=== PATIENT | male | born 1950 | race Caucasian/White ===

== ENCOUNTER 2021-01-16 17:17 | Emergency (ER) | payer OTHER ==
--- NOTE | 2021-01-16 17:51 | RAD REPORT ---
EXAM DESCRIPTION: RAD - Forearm Left - 01/16/2021 5:38 pm CLINICAL HISTORY: laceration;Pain COMPARISON: No comparisons FINDINGS: No acute fracture. No malalignment. No significant focal degenerative changes. IMPRESSION: No acute osseous abnormality involving the left forearm. No radiopaque foreign bodies.
--- NOTE | 2021-01-16 18:16 | RAD REPORT ---
EXAM DESCRIPTION: CT - Head C Spine Cap Wo Con - 01/16/2021 6:01 pm CLINICAL HISTORY: Trauma, head and neck injury. Chest, abdomen and pelvis pain. fall from ladder COMPARISON: No comparisons TECHNIQUE: CT head without contrast. CT cervical spine without contrast with coronal and sagittal reformatted images. CT chest, abdomen and pelvis without contrast with coronal and sagittal reformatted images of the spi ne. All CT scans are performed using dose optimization technique as appropriate and may include automated exposure control or mA/KV adjustment according to patient size. FINDINGS: CT HEAD WITHOUT CONTRAST: No intracranial hemorrhage, hydrocephalus or extra-axial fluid collection. No areas of brain edema o r midline shift. Status post left occipital craniotomy. 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 The paranasal sinuses and mastoids are clear. The calvarium is intact. CT CERVICAL SPINE WITHOUT CONTRAST: No fracture or subluxation. The prevertebral soft tissues are normal in thickness.Multilevel cervica l spondylosis with varying degrees of neural foraminal narrowing. CT CHEST, ABDOMEN, PELVIS WITHOUT CONTRAST: NOTE: Lack of contrast is a significant limitation in the assessment of trauma related findings. Spec ifically, solid organ, vascular and bowel evaluation is significantly limited. The lungs are clear.No pneumothorax or pericardial/pleural fluid. Mild coronary artery calcifications . No evidence of intra-abdominal visceral injury, free fluid or free air is seen within the above detai led limitations. Cholelithiasis. No concerning pelvic findings. T12 compression fracture with less than 20% loss of height. No bony retropulsion. IMPRESSION: T12 compression fracture with less than 20% loss of height anteriorly. No other signific ant trauma is identified. Incidental findings as noted above.
[2021-01-16 18:19] LABS: Absolute Lymphocytes (CBC) 1.3 K/uL (0.7-4.9); Basophils % 0.7 % (0-1.3); Hematocrit 37.1 % (39.6-49.0); Lymphocytes % 25.9 % (15.3-44.8); MPV 8.7 fL (7.6-11.3); RBC Red Blood Cell Count 3.98 M/uL (4.33-5.43)
[2021-01-16 18:37] LABS: ALT/SGPT 48 U/L (12-78); AST/SGOT 38 U/L (15-37); Albumin 3.4 g/dL (3.4-5.0); Alkaline Phosphatase 86 U/L (45-117); BUN Blood Urea Nitrogen 39 mg/dL (7-18); Bicarbonate 22 mmol/L (21-32); Bilirubin Direct < 0.1 mg/dL (0-0.2); Bilirubin Total 0.2 mg/dL (0.2-1.0); Glucose Level 118 mg/dL (74-106); Magnesium 2.2 mg/dL (1.8-2.4); Potassium 3.9 mmol/L (3.5-5.1); Protein, Total 7.1 g/dL (6.4-8.2); Sodium Level 145 mmol/L (136-145); Troponin (Emerg Dept Use Only) < 0.02 ng/mL (0.0-0.045)
[2021-01-16] MEDS ORDERED: BUPIVACAINE 0.5% PF 10 ML VIAL ONE (19:10)
[2021-01-16] MEDS ORDERED: LIDOCAINE 1% W/EPI 1:100,000 MDV 20 ML VIAL ONE (19:10)
--- NOTE | 2021-01-16 20:18 | ER ---
Nurse's Notes [facility] Name: Chuck Lopez Age: 70 yrs Sex: Male : 1950 Arrival Date: 01/16/2021 Time: 17:19 Bed 7 Private MD: Diagnosis: Fall on and from ladder, initial encounter;Laceration without foreign body of left forearm, initial encounter;Fracture of thoracic vertebra-compression, T12 Presentation: 01/16 17:32 Chief complaint: Patient states: Fell off ladder from 10 foot up, laceration to left FA jl7 from external grinder tender, hit back of head, denies loss of consciousness. 17:32 Acuity: ELLIOT 2 jl7 17:32 Care prior to arrival: None. Mechanism of Injury: Fall down 10 steps approximately 10 jl7 feet. Trauma event details: Injury occurred in the [facility], Injury occurred: at home. Injury occurred: January 16, 2021 Injury occurred at: 16:45. 17:32 Method Of Arrival: Wheelchair jl7 17:36 Coronavirus screen: At this time, the client does not indicate any symptoms associated jl7 with coronavirus-19. Ebola Screen: No symptoms or risks identified at this time. Risk Assessment: Do you want to hurt yourself or someone else? Patient reports no desire to harm self or others. Onset of symptoms was January 16, 2021. 17:36 Initial Sepsis Screen: Does the patient meet any 2 criteria? No. Patient's initial bp sepsis screen is negative. Does the patient have a suspected source of infection? No. Patient's initial sepsis screen is negative. 17:36 Complicating Factors: POSSIBLE ELECTROCUTION. bp 20:04 Note Nonadherent dressing applied to left forearm with bacitracin. Dressing applied to df1 abrasion to left ankle. Triage Assessment: 17:36 General: SEE TRIAGE NOTE. Injury Description: Laceration sustained to dorsal aspect of bp left forearm is 2.6 to 7.5 cm long, bleeding moderately. Historical: - Allergies: 17:37 Dilantin; jl7 - Home Meds: 17:37 Aspirin Oral [Active]; topiramate 200 mg oral cp24 [Active]; Epitol 200 mg oral tab jl7 [Active]; Effexor Oral [Active]; - PMHx: 17:37 brain tumor; Hypercholesterolemia; jl7 - PSHx: 17:37 brain tumor removal; jl7 - Immunization history: Last tetanus immunization: < 5 years ago. - Social history:: Smoking status: Patient denies any tobacco usage or history of. Screenin:32 Abuse screen: Denies threats or abuse. Denies injuries from another. Tuberculosis jl7 screening: No symptoms or risk factors identified. Primary Survey: 17:32 Uncontrolled hemorrhage is observed, assessment has been re-ordered to <C> ABC. A: jl7 Airway: patent. Breathing/Chest: Respiratory pattern: regular, Respiratory effort: spontaneous, unlabored, Chest inspection: symmetrical rise and fall of the chest. Circulation: Pulses: palpable right radial artery and left radial artery. Skin color: pink, Skin temperature: warm. Disability Alert. Exposure/Environment: All clothing and personal items were removed. Forensic evidence collection is not deemed to be indicated at this time. Items placed in patient belonging bag. There is evidence of uncontrolled external hemorrhage. Provider notified immediately. Methods to control bleeding applied. Obvious injury(ies) are noted at this time: laceration to left forearm A warming method has been applied: A warm blanket has been provided to the patient. Secondary Survey: 17:35 HEENT: No deficits noted. Gastrointestinal: No deficits noted. : No signs and/or bp symptoms were reported regarding the genitourinary system. Musculoskeletal: No deficits noted. Assessment: 17:35 General: Appears in no apparent distress. comfortable, Behavior is calm, cooperative, bp appropriate for age. 17:35 Pain: Complains of pain in dorsal aspect of left forearm. Neuro: Level of Consciousness bp is awake, alert, obeys commands, Oriented to Appropriate for age. EENT: No deficits noted. Cardiovascular: No deficits noted. Respiratory: No deficits noted. GI: No signs and/or symptoms were reported involving the gastrointestinal system. : No signs and/or symptoms were reported regarding the genitourinary system. Derm: No deficits noted. Musculoskeletal: No deficits noted. Injury Description: Laceration sustained to dorsal aspect of left forearm. 18:38 Reassessment: No changes from previously documented assessment. Patient and/or family bp updated on plan of care and expected duration. Pain level reassessed. PT RETURNED FROM CT. PER MD, PT HAS LUMBAR SPINE FX 2/2 FALL. Vital Signs: 17:36 BP 131 / 90; Pulse 70; Resp 16; Temp 97.9; Pulse Ox 100% ; bp 18:35 BP 130 / 84; Pulse 68; Resp 16; Pulse Ox 100% ; bp 20:06 BP 131 / 84; Pulse 69; Resp 18; Pulse Ox 100% on R/A; df1 Gerlach Coma Score: 17:32 Eye Response: spontaneous(4). Verbal Response: oriented(5). Motor Response: obeys jl7 commands(6). Total: 15. Trauma Score (Adult): 17:35 Eye Response: spontaneous(1); Verbal Response: oriented(1); Motor Response: obeys bp commands(2); Systolic BP: > 89 mm Hg(4); Respiratory Rate: 10 to 29 per min(4); Gerlach Score: 15; Trauma Score: 12 ED Course: 17:19 Patient arrived in ED. jl7 17:23 Franck Mo PA is PHCP. cp 17:23 Pedro Luis Woodruff MD is Attending Physician. cp 17:32 Patient has correct armband on for positive identification. jl7 17:32 Patient maintains SpO2 saturation greater than 95% on room air. jl7 17:33 Triage completed. jl7 17:37 Arm band placed on right wrist. jl7 17:39 XRAY Forearm LEFT In Process Unspecified. EDMS 17:40 Inserted saline lock: 18 gauge in right forearm, using aseptic technique. Blood bp collected. 17:42 Clark Mayfield, RN is Primary Nurse. bp 17:55 CBC with Diff Sent. bp 17:55 Basic Metabolic Panel Sent. bp 18:01 Head C Spine Cap Wo Con In Process Unspecified. EDMS 20:37 IV discontinued, intact, bleeding controlled, No redness/swelling at site. Pressure wg dressing applied. Administered Medications: 18:45 Drug: Lidocaine-Epinephrine -1%: (1:100,000) 10 ml {Note: AT B/S FOR PROVIDER.} Volume: bp 20 ml; Route: Infiltration; 18:45 Drug: Marcaine (bupivacaine) (0.5 %) 10 ml Volume: 10 ml; Route: Infiltration; bp Intake: 17:35 PO: 0ml; Total: 0ml. bp Output: 17:35 Urine: 0ml; Total: 0ml. bp Outcome: 20:18 Discharge ordered by . cp 20:37 Discharged to home ambulatory, with significant other. wg 20:37 Condition: stable 20:37 Discharge instructions given to patient, significant other, Instructed on discharge instructions, follow up and referral plans. Demonstrated understanding of instructions, follow-up care, medications, Prescriptions given X 2. 20:38 Patient left the ED. wg Signatures: Dispatcher [employer] EDMS Franck Mo PA PA cp Leal, Jahala, RN RN jl7 Clark Mayfield RN RN Michael Ornelas RN wg Furlich, Dawn df1 Corrections: (The following items were deleted from the chart) 18:01 17:55 To radiology for Head C Spine CAP W Con+CT.RAD.BRZ. bp EDMS
--- NOTE | 2021-01-16 20:18 | EDPHYS ---
Physician Documentation [facility] Name: Chuck Lopez Age: 70 yrs Sex: Male : 1950 Arrival Date: 01/16/2021 Time: 17:19 Bed 7 Private MD: ED Physician Pedro Luis Woodruff HPI: 01/16 17:35 This 70 yrs old Male presents to ER via Wheelchair with complaints of Fell cp off ladder, Laceration To Arm. 17:35 Trauma demographics: Location of Injury: The injury occurred outdoors, Date: January. 17:35 Mechanism of injury: Fall: the patient fell from a ladder approximately approximately cp 10 feet, and struck dirt. Associated injuries: The patient sustained injury to the head, contusion, dorsal aspect of left forearm, laceration. Onset: The symptoms/episode began/occurred just prior to arrival. Patient reports he was using a internal grinder on a ladder 10 feet off the ground when he lost his balance causing injury to left forearm. Patient unsure of LOC and reports striking head. Patient with history of brain surgery. Historical: - Allergies: 17:37 Dilantin; jl7 - Home Meds: 17:37 Aspirin Oral [Active]; topiramate 200 mg oral cp24 [Active]; Epitol 200 mg oral tab jl7 [Active]; Effexor Oral [Active]; - PMHx: 17:37 brain tumor; Hypercholesterolemia; jl7 - PSHx: 17:37 brain tumor removal; jl7 - Immunization history: Last tetanus immunization: < 5 years ago. - Social history:: Smoking status: Patient denies any tobacco usage or history of. ROS: 17:40 Constitutional: Negative for body aches, chills, fever, poor PO intake. cp 17:40 Cardiovascular: Negative for chest pain. cp 17:40 Respiratory: Negative for cough, shortness of breath, wheezing. 17:40 Abdomen/GI: Negative for abdominal pain, nausea, vomiting, and diarrhea. 17:40 Skin: Positive for laceration(s), of the dorsal aspect of left forearm. 17:40 Neuro: Negative for altered mental status, syncope, weakness. 17:40 All other systems are negative. Exam: 17:45 Constitutional: The patient appears in no acute distress, alert, awake, cp non-diaphoretic, non-toxic, well developed, well nourished. 17:45 Head/face: Noted is contusion, that is superficial, of the left side of the back of cp head and right side of the back of head. 17:45 Eyes: Periorbital structures: appear normal, Pupils: equal, round, and reactive to light and accomodation, Extraocular movements: intact throughout, Conjunctiva: normal, no exudate, no injection, Sclera: no appreciated abnormality, Lids and lashes: appear normal, bilaterally. 17:45 ENT: External ear(s): are unremarkable, Ear canal(s): are normal, clear, TM's: dullness, bilaterally, Nose: is normal, Mouth: Lips: moist, Oral mucosa: moist, Posterior pharynx: Airway: no evidence of obstruction, patent. 17:45 Neck: C-spine: C-collar placed in ED, vertebral tenderness, is not appreciated, crepitus, is not appreciated. 17:45 Chest/axilla: Inspection: normal, Palpation: is normal, no crepitus, no tenderness. 17:45 Cardiovascular: Rate: normal, Rhythm: regular, Pulses: Pulses are 2+ in right radial artery and left radial artery. 17:45 Respiratory: the patient does not display signs of respiratory distress, Respirations: normal, no use of accessory muscles, no retractions, labored breathing, is not present, Breath sounds: are clear throughout, no decreased breath sounds, no stridor, no wheezing. 17:45 Abdomen/GI: Inspection: abdomen appears normal, Bowel sounds: active, all quadrants, Palpation: abdomen is soft and non-tender, in all quadrants. 17:45 Back: pain, that is mild, of the lower thoracic vertebrae, ROM is normal, Straight leg raises: of both lower extremities does not illicit pain. 17:45 Musculoskeletal/extremity: Extremities: grossly normal except: noted in the dorsal aspect of left forearm: laceration. 17:45 Neuro: Orientation: to person, place \T\ time. Mentation: is normal, Motor: moves all fours, strength is normal, Sensation: is normal. 18:55 ECG was reviewed by the Attending Physician. cp Vital Signs: 17:36 BP 131 / 90; Pulse 70; Resp 16; Temp 97.9; Pulse Ox 100% ; bp 18:35 BP 130 / 84; Pulse 68; Resp 16; Pulse Ox 100% ; bp 20:06 BP 131 / 84; Pulse 69; Resp 18; Pulse Ox 100% on R/A; df1 Hungerford Coma Score: 17:32 Eye Response: spontaneous(4). Verbal Response: oriented(5). Motor Response: obeys jl7 commands(6). Total: 15. Trauma Score (Adult): 17:35 Eye Response: spontaneous(1); Verbal Response: oriented(1); Motor Response: obeys bp commands(2); Systolic BP: > 89 mm Hg(4); Respiratory Rate: 10 to 29 per min(4); Hungerford Score: 15; Trauma Score: 12 Laceration: 20:00 Wound Repair of 7cm ( 2.8in ) subcutaneous laceration to dorsal aspect of left forearm. cp Irregularly shaped.. Distal neuro/vascular/tendon intact. Anesthesia: Wound infiltrated with 10 mls of Lido/Marcaine. Wound prep: Moderate cleansing by me, Wound irrigation by me. Skin closed with 10 4-0 Prolene using interrupted sutures and sterile technique. Dressed with Bacitracin, 4x4's, pressure dressing. Patient tolerated well. MDM: 17:47 Patient medically screened. cp 20:15 Data reviewed: vital signs, nurses notes, lab test result(s), EKG, radiologic studies, cp CT scan, plain films. 20:15 Differential diagnosis: closed head injury, C spine fracture, T spine fracture, L spine cp fracture, multiple trauma. Test interpretation: by ED physician or midlevel provider: ECG, plain radiologic studies. Counseling: I had a detailed discussion with the patient and/or guardian regarding: the historical points, exam findings, and any diagnostic results supporting the discharge/admit diagnosis, lab results, radiology results, the need for outpatient follow up, a family practitioner, to return to the emergency department if symptoms worsen or persist or if there are any questions or concerns that arise at home. Response to treatment: the patient's symptoms have markedly improved after treatment, and as a result, I will discharge patient. 01/16 17:32 Order name: Basic Metabolic Panel cp 01/16 17:32 Order name: CBC with Diff cp 01/16 17:32 Order name: LFT's; Complete Time: 19:54 cp 01/16 17:32 Order name: Magnesium; Complete Time: 19:54 cp 01/16 17:32 Order name: PT-INR; Complete Time: 18:32 cp 01/16 17:32 Order name: Troponin (emerg Dept Use Only); Complete Time: 19:54 cp 01/16 17:32 Order name: Ptt, Activated; Complete Time: 18:32 cp 01/16 17:32 Order name: Type And Screen; Complete Time: 19:54 cp 01/16 17:32 Order name: XRAY Forearm LEFT; Complete Time: 18:30 cp 01/16 18:30 Interpretation: Report reviewed. cp 01/16 17:33 Order name: Basic Metabolic Panel; Complete Time: 19:54 EDMS 01/16 19:54 Interpretation: Normal except: CL 114; GLUC 118; BUN 39; CRE 1.49; GFR 47. cp 01/16 17:33 Order name: CBC with Automated Diff; Complete Time: 18:32 EDMS 01/16 18:32 Interpretation: Normal except: RBC 3.98; HGB 12.6; HCT 37.1. cp 01/16 18:01 Order name: Head C Spine Cap Wo Con; Complete Time: 18:30 EDMS 01/16 19:38 Order name: ABO/RH no charge; Complete Time: 19:54 EDMS 01/16 17:32 Order name: EKG; Complete Time: 17:33 cp 01/16 17:32 Order name: Cardiac monitoring; Complete Time: 17:43 cp 01/16 17:32 Order name: EKG - Nurse/Tech; Complete Time: 18:48 cp 01/16 17:32 Order name: IV Saline Lock; Complete Time: 17:43 cp 01/16 17:32 Order name: Labs collected and sent; Complete Time: 17:43 cp 01/16 17:32 Order name: O2 Per Protocol; Complete Time: 17:43 cp 01/16 17:32 Order name: O2 Sat Monitoring; Complete Time: 17:43 cp 01/16 17:32 Order name: C-Collar; Complete Time: 18:51 cp 01/16 19:21 Order name: Wound dressing; Complete Time: 20:16 cp EC:55 Rate is 70 beats/min. Rhythm is regular. TX interval is normal. QRS interval is normal. cp QT interval is normal. T waves are Inverted in lead aVR. Interpreted by me. Reviewed by me. Administered Medications: 18:45 Drug: Lidocaine-Epinephrine -1%: (1:100,000) 10 ml {Note: AT B/S FOR PROVIDER.} Volume: bp 20 ml; Route: Infiltration; 18:45 Drug: Marcaine (bupivacaine) (0.5 %) 10 ml Volume: 10 ml; Route: Infiltration; bp Disposition: 20:30 Chart complete. cp 01/17 12:52 Co-signature as Attending Physician, Pedro Luis Woodruff MD I agree with the assessment and kdr plan of care. Disposition Summary: 01/16/21 20:18 Discharge Ordered Location: Home cp Problem: new cp Symptoms: have improved cp Condition: Stable cp Diagnosis - Fall on and from ladder, initial encounter cp - Laceration without foreign body of left forearm, initial encounter cp - Fracture of thoracic vertebra - compression, T12 cp Followup: cp - With: Private Physician - When: 2 - 3 days - Reason: Wound Recheck Discharge Instructions: - Discharge Summary Sheet cp - Spinal Compression Fracture cp - Laceration Care, Adult cp Forms: - Medication Reconciliation Form cp - Thank You Letter cp - Antibiotic Education cp - Prescription Opioid Use cp Prescriptions: - Ibuprofen 800 mg Oral Tablet - take 1 tablet by ORAL route every 8 hours As needed take with food; 30 tablet; cp Refills: 0, Product Selection Permitted - Cephalexin 500 mg Oral Capsule - take 1 capsule by ORAL route every 6 hours for 10 days; 40 capsule; Refills: 0, cp Product Selection Permitted Signatures: Dispatcher [employer] EDMS Pedro Luis Woodruff MD MD kdr Franck Mo PA PA cp Reed Soto RN RN jl7 Clark Mayfield, RN RN bp Corrections: (The following items were deleted from the chart) 01/16 18:01 17:33 Head C Spine CAP W Con+CT.RAD.BRZ ordered. EDWV EDMS
[2021-01-16 20:56] VITALS: TEMP 97.9; O2SAT 100
[2021-01-16 20:58] VITALS: BP 131/84
--- NOTE | 2021-01-17 11:44 | EKG ---
Test Date: 2021-01-16 Test Time: 18:48:33 Kettle Girl: JEFF MEASUREMENT RESULTS: Intervals: Rate: 70 IN: 158 QRSD: 100 QT: 406 QTc: 438 Omar: P: 15 IN: 158 QRS: -19 T: 25 INTERPRETIVE STATEMENTS: Normal sinus rhythm Low voltage QRS Cannot rule out Anterior infarct, age undetermined Abnormal ECG Compared to ECG 04/22/1992 14:08:00 Low QRS voltage now present Myocardial infarct finding now present Sinus bradycardia no longer present Electronically Signed On 01-17-21 11:44:03 CDT by Noel Mancia
== END 2021-01-16 20:38 | disposition home or self-care (01) ==
LOC: ER 17:17
PROC: 0JQH0ZZ Repair Left Lower Arm Subcutaneous Tissue and Fascia, Open Approach (ICD-10-PCS; principal; 2021-01-16)
DX: S22.089A Unspecified fracture of T11-T12 vertebra, initial encounter for closed fracture (principal); S51.812A Laceration without foreign body of left forearm, initial encounter; W11.XXXA Fall on and from ladder, initial encounter; Y92.89 Other specified places as the place of occurrence of the external cause; E78.00 Pure hypercholesterolemia, unspecified; Z88.8 Allergy status to other drugs, medicaments and biological substances; Z79.82 Long term (current) use of aspirin
CPT/HCPCS: 36415; 70450; 71250; 72125; 80048; 80076; 82565; 83735; 84484; 85025; 85610; 85730; 86850; 86900; 86901; 93005; 99284

== ENCOUNTER 2021-09-02 06:24 | Day surgery (SDC) | payer OTHER ==
--- NOTE | 2021-09-01 15:00 | RAD REPORT ---
EXAM DESCRIPTION: RAD - Chest Pa And Lat (2 Views) - 09/01/2021 2:54 pm CLINICAL HISTORY: Pre op Chest pain. COMPARISON: No comparisons FINDINGS: The lungs are clear. The heart is normal in size. No displaced fractures. IMPRESSION: No acute or concerning finding suspected.
[2021-09-01 15:40] LABS: Absolute Lymphocytes (CBC) 1.1 K/uL (0.7-4.9); MPV 8.5 fL (7.6-11.3); RBC Red Blood Cell Count 4.06 M/uL (4.33-5.43)
[2021-09-01 15:50] LABS: Potassium 4.2 mmol/L (3.5-5.1)
[2021-09-02] MEDS ORDERED: Ringers Lactate 1,000 ML IV ONE (06:36)
[2021-09-02] MEDS ORDERED: CEFAZOLIN SODIUM 1 GM/VIAL ONE (06:36)
[2021-09-02] MEDS ORDERED: propofoL 200 MG/20 ML VIAL IV ONE ×2 (07:05→07:11)
[2021-09-02] MEDS ORDERED: FENTANYL CITR 100 MCG/2 ML ONE (07:06)
[2021-09-02] MEDS ORDERED: LIDOCAINE 1% MPF 5 ML VIAL ONE (07:06)
[2021-09-02] MEDS: BUPIVACAINE 0.5% PF 10 ML VIAL ONE ×3 (07:30→08:45)
--- NOTE | 2021-09-02 07:52 | EKG ---
Test Date: 2021-09-01 Test Time: 14:32:30 Cray Fishing Hand: RADAMES MEASUREMENT RESULTS: Intervals: Rate: 55 AL: 212 QRSD: 98 QT: 424 QTc: 405 [place]: P: 38 AL: 212 QRS: -29 T: 10 INTERPRETIVE STATEMENTS: Sinus bradycardia with marked sinus arrhythmia with 1st degree AV block Low voltage QRS Septal infarct, age undetermined Abnormal ECG Compared to ECG 01/16/2021 18:48:33 First degree AV block now present Sinus rhythm no longer present Myocardial infarct finding still present Electronically Signed On 09-02-21 07:50:28 CDT by Noel Mancia
[2021-09-02] MEDS ORDERED: NS 0.9% VIAL 10 ML ONE (08:28)
[2021-09-02] MEDS ORDERED: KETOROLAC 30 MG/ML INJ ONE (08:31)
--- NOTE | 2021-09-02 09:47 | P.BOP ---
Preoperative diagnosis: Forearm tender subQ mass Postoperative diagnosis: same Primary procedure: Excisional biopsy forearm sunQ tender mass Background Check Coordinator: DARCY JACK (DIRECTOR CARDIAC) Estimated blood loss: <10cc Specimen: mass Findings: mass attached to fascia of muscle Anesthesia: MAC Complications: None Transferred to: Recovery Room Condition: Good
[2021-09-02 10:08] VITALS: O2SAT 100
[2021-09-02 10:11] VITALS: BP 121/77; TEMP 97.5
--- NOTE | 2021-09-03 02:12 | DS ---
Date of Discharge: 09/02/2021 Diagnosis: Left forearm subcutaneous mass. Procedure: Excisional biopsy of tender left forearm subcutaneous mass. Disposition: Home. Activity: As tolerated. No heavy lifting. Followup: Follow up in my office in 1 week. Call for appointment at [phone]. Keep area dry for 48 hours, then may shower. The patient once again advised to discuss with his primary doctor today the findings of COVID and there is anything else he need to do. STEVE/SOO Voice ID: [id number] Report ID: [id number]
--- NOTE | 2021-09-03 02:18 | OP ---
Date of Procedure: 09/02/2021 Surgeon: Christian Strauss MD Preoperative Diagnosis: Tender left forearm subcutaneous mass. Postoperative Diagnosis: Tender left forearm subcutaneous mass. Procedure: Excisional biopsy of tender left forearm subcutaneous mass. Complications: None. I have to patient also is COVID positive. This is a case of a male, who comes to us with a tender mass in the left forearm region, it is increasing in size and discomfort. The patient remem bered that previously he has a trauma that area by putting a chainsaw over that forearm creating exte nsive damage. He was doing okay until this mass starting to get red and increased in size and discomfort. The patient understands he is COVID positive, but at the same time this is just inc reasing in size and he wants that excised. For us it is hard to see what it is and is distended and is getting red, probably infected, but also he can have a possibility of a foreign body. So, excisio nal biopsy of the mass was fully explained with benefits, alternative, and risks including, but not l imited to infection, bleeding, damage to adjacent structures, anesthesia complication, recurrence, CO and even . He also understands this may not relieve any symptoms. He might need more than one surgical intervention. He understood and signed the consent. Description Of Procedure: The patient was brought to the operating room and placed in supine positio n. Anesthesia was done without complication. The area of concern was previously marked by me and th e patient in the holding room. An incision was made in that area after time-out, after prepping the area and put a local anesthetic. A wedge incision was made in the skin all the way down to subcutane ous tissue. We noticed this mass was cystic nature, attached to the fascia of the muscle that have t o be removed with that scar and the fascia of the muscle. Area was irrigated. Hemostasis was obtain ed and then we proceeded to close this with 3-0 chromic and then nylon on top. The patient tolerated the procedure well. No more masses palpated in that area. The patient was sent to recovery in stab le condition. STEVE/ANYIL Voice ID: [id number] Report ID: [id number]
== END 2021-09-02 10:00 | disposition home or self-care (01) ==
LOC: OR 06:24
PROVIDERS: ATTEND Surgery
PROC: 0JBH0ZZ Excision of Left Lower Arm Subcutaneous Tissue and Fascia, Open Approach (ICD-10-PCS; principal; 2021-09-02 08:15)
DX: L72.0 Epidermal cyst (principal); U07.1 COVID-19; E78.00 Pure hypercholesterolemia, unspecified; E03.9 Hypothyroidism, unspecified; Z86.73 Personal history of transient ischemic attack (TIA), and cerebral infarction without residual deficits
CPT/HCPCS: 36415; 71046; 80048; 80156; 85025; 88304; 93005; J0690; J2704; J3010; J7120; U0003